=== PATIENT | female | born 1955 | race Caucasian/White ===

== ENCOUNTER 2024-11-09 08:06 | Day surgery (SDC) | payer MEDICARE, OTHER ==
[~2024-11-09] VITALS: Ht 144.8 cm; Wt 62.3 kg
[~2024-11-09 08:06] MED LIST: ASPI-1444 PO; ATOR40TA28 PO; FURO20TA5 PO; HYDR200T38 PO; LISI-893 PO; MACI10TA PO; OMEP-148 PO; SODIUM CHLORIDE 0.9% 1,000 ML IV ONE; TADA20TA31 PO; [UNRECOGNIZED DRUG - CODE] PO
[2024-11-09] MEDS ORDERED: EPHEDrine SULFATE 50 MG/ML VIAL ONE (12:00)
[2024-11-09] MEDS ORDERED: LIDOCAINE/PF 2% 5 ML VIAL ONE (12:00)
[2024-11-09] MEDS ORDERED: 0.9% SODIUM CHLORIDE 10 ML VIAL ONE (12:00)
[2024-11-09] MEDS ORDERED: PROPOFOL 1% 20 ML VIAL IVP ONE (12:00)
== END 2024-11-09 11:00 | disposition home or self-care (01) ==
LOC: SURGERY 08:06
PROVIDERS: ATTEND Internal Medicine Gastroenterology
DX: R19.5 Other fecal abnormalities (principal); D12.3 Benign neoplasm of transverse colon; K64.8 Other hemorrhoids; K29.70 Gastritis, unspecified, without bleeding; I25.10 Atherosclerotic heart disease of native coronary artery without angina pectoris; M19.90 Unspecified osteoarthritis, unspecified site; E78.00 Pure hypercholesterolemia, unspecified; Z95.5 Presence of coronary angioplasty implant and graft; Z98.890 Other specified postprocedural states
CPT/HCPCS: 45385; 43239; 88305; C1769; J2704; J3490 ×2